=== PATIENT | male | born 1980 | race Caucasian/White ===

== ENCOUNTER → 2016-07-01 | Outpatient (CLI) | payer OTHER ==
--- NOTE | 2016-07-01 15:52 | MR ---
EXAMINATION TYPE: MR knee RT wo con DATE OF EXAM: 07/01/2016 3:29 PM COMPARISON: NONE HISTORY: Rt knee pain/lateral aspect since 06-12-16, injured while stepping off truck TECHNIQUE: Multiplanar, multisequence imaging of the right knee is performed without IV contrast. FINDINGS: MEDIAL MENISCUS: Intrasubstance signal posterior horn of the medial and lateral meniscus seen. Most t ypical of myxoid degeneration. No definite articular extension. LATERAL MENISCUS: Anterior and posterior horns are intact without tear. CRUCIATE LIGAMENTS: The anterior and posterior cruciate ligaments are intact and unremarkable. COLLATERAL LIGAMENTS: There is intrasubstance increased signal near the proximal portion of the later al collateral ligament MCL intact. EXTENSOR MECHANISM: Visualized quadriceps and patellar tendons are intact. EFFUSION: No significant suprapatellar joint effusion. POPLITEAL CYST: No popliteal/morrow cyst. TRICOMPARTMENT SPACES: There is grade IV chondromalacia involving the lateral patellar facet. Tiny am ount of fluid seen within the suprapatellar bursa and there is intermediate signal which may represen t small loose body. Marrow edema seen within the patella with no fracture line. Correlate for trauma and bone contusion. Patellar and quadriceps tendons intact. Retinaculum intact. Fibrillation is seen involving the articular medial and lateral femoral. BONE MARROW SIGNAL: Marrow signal alteration within the patella suggestive of contusion. OTHER: Superficial varicosities are noted. These are seen within the subcutaneous tissues.. IMPRESSION: 1. Grade 1 MCL strain 2. Grade IV chondromalacia lateral patellar facet with evidence of bone contusion involving the bishop la but no fracture. 3. Findings involving the posterior horn of the medial and lateral meniscus are suggestive of myxoid degeneration with no definite tear.
== END | disposition home or self-care (01) ==
LOC: RADMRIMAIN 14:39
PROVIDERS: ATTEND Orthopaedic Surgery
DX: S83.411A Sprain of medial collateral ligament of right knee, initial encounter (principal); M22.41 Chondromalacia patellae, right knee

== ENCOUNTER → 2018-03-20 | Outpatient (CLI) | payer OTHER ==
--- NOTE | 2018-03-22 03:50 | MR ---
EXAMINATION TYPE: MR hand RT wo con DATE OF EXAM: 03/20/2018 COMPARISON: HISTORY: Pain in 2nd and 3rd digit MCP Joint Standard multiplanar, multisequence MRI departmental protocol Multiplanar, multisequence images of the right hand were acquired. Diffusion weighted imaging was per formed. FINDINGS: The metacarpals appear intact. Phalanges appear intact. I see no focal bone destruction. Radha int spaces are fairly normal. There is no subluxation. The flexor and extensor tendons of the hand ap pear intact. MP joint spaces are fairly well-maintained. There is tiny amount of fluid at the second third fourth MP joints consistent with minimal synovitis. There is no evidence of a soft tissue mass. There is no extra-articular pathologic soft tissue fluid collection. IMPRESSION: No fracture. Minimal fluid at the second third fourth MP joints consistent with minimal nonspecific s ynovitis.
== END ==
LOC: RADMRIMAIN 15:09
PROVIDERS: ATTEND Orthopaedic Surgery Hand Surgery
DX: M79.641 Pain in right hand (principal)

== ENCOUNTER → 2019-02-08 | Outpatient (CLI) | payer OTHER ==
--- NOTE | 2019-02-10 04:29 | MR ---
EXAMINATION TYPE: MR wrist LT wo con DATE OF EXAM: 02/08/2019 COMPARISON: NONE HISTORY: 38-year-old male left wrist pain, sprain TECHNIQUE: Multiplanar, multisequence images of the left wrist were obtained without IV contrast. FINDINGS: There is mild globular intermediate signal with thickening of the dorsal scapholunate ligament. Intac t dorsal fibers are visualized. The lunotriquetral ligament is intact. Subchondral cystic changes noted within the volar aspect of the scaphoid and also volar aspect of the radial styloid process at the radiocarpal joint. This seems to be associated irregular cartilage los s in this region along the radial aspect of the joint, refer to coronal T2 FS image 15. Otherwise, overall cartilage is maintained without evidence for bony erosions. There is some fusiform thickening of the extensor carpi ulnaris with a small interstitial tear, surro unding heterogeneous thickening of its synovial sheath and anterior tendon subluxation. A third small tendon slip within the second dorsal extensor compartment likely anatomic variation. Otherwise, dorsal extensor and volar flexor tendons appear within normal limits. Thickening of the median nerve at the level of the distal carpal crease at 20 sq mm. The triangular fibrocartilage remains intact. There is some thickening and heterogeneous signal along the ulnar attachment of the dorsal radioulnar ligament, referred to the coronal T2 FS image 16. Smal l effusion within the distal radioulnar joint. The visualized musculature and osseous structures are otherwise within normal limits. IMPRESSION: 1. Focal osteoarthritic change along the radial volar aspect of the radioscaphoid joint with focal ir regular cartilage loss and subchondral cystic change. 2. ECU tendinosis, mild tenosynovitis, and small interstitial tear. There is also anterior tendon sub luxation suggesting ECU subsheath sprain. 3. Adjacent mild sprain involving the dorsal radioulnar ligament. 4. Low-grade versus chronic sprain of the dorsal scapholunate ligament. No molly tear. 5. Thickening of the median nerve at the carpal tunnel can be seen with median neuropathy. Query any symptoms of carpal tunnel syndrome.
== END | disposition home or self-care (01) ==
LOC: RADMRIMAIN 14:30
PROVIDERS: ATTEND Orthopaedic Surgery
DX: M19.032 Primary osteoarthritis, left wrist (principal); M65.88 Other synovitis and tenosynovitis, other site; M67.88 Other specified disorders of synovium and tendon, other site; S63.592A Other specified sprain of left wrist, initial encounter; G56.12 Other lesions of median nerve, left upper limb

== ENCOUNTER → 2019-03-19 | Outpatient (CLI) | payer OTHER ==
--- NOTE | 2019-04-19 16:56 | XR ---
EXAMINATION TYPE: XR lumbar spine 2 or 3V DATE OF EXAM: 03/19/2019 COMPARISON: NONE HISTORY: Back pain TECHNIQUE: 3 views FINDINGS: Vertebra have normal alignment. Posterior elements are intact. There is mild anterior spurr ing at L1-2 and L3-4. Sacroiliac joints are intact. IMPRESSION: Mild degenerative spurring. No fracture seen.
== END | disposition home or self-care (01) ==
LOC: RADXRMAIN 10:54
PROVIDERS: ATTEND Family Medicine
DX: M47.26 Other spondylosis with radiculopathy, lumbar region (principal)
CPT/HCPCS: 72100

== ENCOUNTER → 2020-07-25 | Outpatient (CLI) | payer OTHER ==
--- NOTE | 2020-07-25 15:42 | XR ---
EXAMINATION TYPE: XR Hip Complete LT DATE OF EXAM: 07/25/2020 CLINICAL HISTORY: pain TECHNIQUE: AP and frogleg views of the left hip are obtained. COMPARISON: None. FINDINGS: There is no acute fracture/dislocation evident. The joint space appears moderately narro wed.. The overlying soft tissue appears unremarkable. IMPRESSION: 1. There is no acute fracture or dislocation.ICD 10 NO FRACTURE, INITIAL EVALUATION
== END | disposition home or self-care (01) ==
LOC: RADXRMAIN 15:09
PROVIDERS: ATTEND Family Medicine
DX: M25.552 Pain in left hip (principal)
CPT/HCPCS: 73502

== ENCOUNTER → 2020-09-20 | Outpatient (CLI) | payer OTHER ==
--- NOTE | 2020-09-20 21:56 | CT ---
EXAMINATION TYPE: CT lumbar spine wo con DATE OF EXAM: 09/20/2020 COMPARISON: None HISTORY: DDD CT DLP: 3116.4 mGycm CONTRAST: None TECHNIQUE: CT of the lumbar spine is performed on a spiral scan at 3 mm thick sections. Reconstructed images are performed in the coronal and sagittal planes. FINDINGS: T12-L1: No focal disc herniation or significant disc bulge is evident. No spinal canal stenosis or neural foraminal stenosis is present. L1-L2: No focal disc herniation or significant disc bulge is evident. No spinal canal stenosis or n eural foraminal stenosis is present L2-L3: Mild disc bulge is present with anterior thecal sac flattening. No spinal canal stenosis or ne ural foraminal stenosis is present. L3-L4: Minimal disc bulge is present. Some posterior longitudinal ligament calcification is present. No spinal canal stenosis or neural foraminal stenosis is present L4-L5: Mild disc bulge is present with anterior thecal sac flattening. No spinal canal stenosis is pr esent. Some moderate left foraminal narrowing is present mild right foraminal narrowing is present L5-S1: Facet hypertrophy is present with posterior lateral thecal sac compression. Lateral recess hoad nosis is present. Severe bilateral foraminal stenosis is present. Spinal canal is patent. No signific ant disc bulge is evident. Endplate spurring from L5 is present Vertebral alignment appears normal. IMPRESSION: 1. Disc bulging L2-3 through L4-5 with mild anterior thecal sac flattening. 2. Facet hypertrophy contributing to severe foraminal stenosis at L5-S1. Correlate S1 radicular sympt oms.
== END | disposition home or self-care (01) ==
LOC: RADCTMAIN 07:39
PROVIDERS: ATTEND Family Medicine
DX: M48.07 Spinal stenosis, lumbosacral region (principal); M51.26 Other intervertebral disc displacement, lumbar region
CPT/HCPCS: 72131

== ENCOUNTER → 2021-07-12 | Outpatient (CLI) | payer OTHER ==
[2021-07-12 14:48] VITALS: BP 115/76; PULSE 90; RESP 18; TEMP 98
--- NOTE | 2021-07-12 14:54 | P.CON ---
Consult Note - . Consult date: 07/12/21 Assessment/Plan:: HISTORY OF PRESENT ILLNESS: 41 yr old male as a referral from Dr Glaser presents today with severe and chronic lumbar pain secondary to disc bulges, neuroforaminal stenoses and facet arthropathy for evaluation. Patient states he has been having lower back pain for the last 5 or 6 years. It is 4 out of 10 in intensity, dull, achy in the lower aspects of the lumbar spine without radiation of pain but occasionally escalates as high as 10 out of 10 in intensity with bending, lifting and standing. Pain is relieved with medications (Neurontin, ibuprofen from Dr. Glaser), topical medications that are [id number], physical therapy in October 2020, daily home stretching regimen and rest. PMH: HTN, PreDiabetic, OA PSH: LESI x 3 "years ago," L MCL Tear, L Wrist Tendinitis SH: No tobacco use, occasional ETOH use, no illicit drug use. Wheelchair dependent. FH: Non contributory All: NKDA Meds: See list REVIEW OF ORGAN SYSTEMS: CONSTITUTIONAL: No fevers or chills. No recent weight loss. HEENT: No visual acuity loss, eye pain, difficulties with hearing. No nosebleeds. No difficulty swallowing. RESPIRATORY: Denies any troubles with breathing or dyspnea on exertion. CARDIOVASCULAR: Denies any chest pain, palpitations, or recent heart attacks. GASTROINTESTINAL: Denies fatty food intolerance. Has change in bowel habits and gas bloat. GENITOURINARY: Denies any blood in urine. Has increased urinary frequency. NEUROLOGICAL: + numbness and tingling along the distal extremities. No seizure disorders or headaches. MUSCULOSKELETAL: + back pain SKIN: No skin cancer. No rash. PSYCHIATRIC: Denies current depression or suicidal thoughts. ENDOCRINE: Denies current thyroid disorders. Denies any blood sugar glucose intolerance. HEME/LYMPHATIC: Denies any lumps and bumps around the neck. History of deep venous thrombosis. ALLERGY/IMMUNOLOGY: No immunoglobulin therapy. No immune deficiencies. BREAST: Denies current breast lumps, pain or nipple discharge. Physical Examinations : Constitutional : Cooperative , not in acute distress . HEENT: Neck supple. No Lymphadenopathy. Normal thyroid size . Eyes no ptosis , no icterus, no photophobia . Hearing intact. Normal oropharynx. No Thrush. Respiratory : Chest clear to auscultations bilaterally. No wheezing. No rhonchi. Cardiovascular : Regular rate and rhythm , S1 / S2. No S3 . No S4. Gastrointestinal : Abdomen soft. No tenderness. Bowel sounds x 4. No organomegaly . Genitourinary : Deferred. Neurologic : Cranial nerve II to XII intact. No focal neurological deficits. Psychiatric : alert & oriented x 3. Matching mood & appropriate affect. Judgment & insight intact. Lymphatic No Lymphadenopathy. Musculoskeletal : Cervical Spine Motor strength in the deltoid and biceps: Normal right side. Normal Left side Motor strength biceps and the wrist extensors: Normal right side . Normal left side Motor strength in the triceps muscle: Normal right side. Normal left side Deep tendon reflexes: Normal at the biceps. Normal at Brachioradialis. Normal at triceps Cervical facet loading test: positive bilaterally Spurling test: positive bilaterally Neck distraction test: positive bilaterally Hoda sign: positive bilaterally Lumbar spine Motor strength lower extremities ,thigh and legs 5/5 Right side , 5/5 Left side Deep tendon reflexes : Normal Knee Jerk. Normal Ankle Jerk Vertebral body tenderness over L4, L5 Lumbar facet Loading Test: positive Right / positive Left Range of motion of the lumbar spine Flexion 30 degrees, extension 10 degrees Straight Leg Raise test: Left/ Right positive at <45 degree Rick test: positive right / positive left. Severe tenderness over the Sacroiliac joint on the Right / Left sides Gaenslen test: positive bilaterally Seated flexion test: positive bilaterally. Imaging: CT Scan Lumbar spine without contrast from 09/20/20 reviewed. Assessment/ Plan : Recommendation of LESI L4-L5. A need a series of injections, up to 3 within a six-month period, to obtain optimal pain relief. Risks, benefits of procedure discussed and patient verbalized understanding. Denies aspirin or anti- coagulant use. Admits to medical history of prediabetes. Protocol for disconti nuation/continuation of medications matteo procedure discussed. All questions answered. I have spent greater than 50 minutes on patient care today. Dr Serrano was available by phone for the evaluation of this patient. The time was used to review the medical records including relevant urine studies and Prescription history (MAPs), review of the available imaging, evaluation and examination of the patient, coordination of care with the medical staff and if applicable referring physicians, as well as creation of the medical record PQRS Measure Charge Sheet Mode of Arrival: Ambulatory, Walker - Pain Location Lower Back Non-Pharmacological Interventions: Heat, Home Exercise, Ice, Inactivity, Physical Therapy, Stretching Pharmacological Interventions: PRN Medication PQRS Narrative: Smoking Status Never smoker Blood Pressure 115/76 Pain Intensity [Lower Back] 4 Scale Used Numeric (1 - 10) Hx Alcohol Use (MH) No Home Medications: Ambulatory Orders Hydrocodone/Acetaminophen [[place] 5-325] 1 tab PO Q6HR PRN #20 tab 01/19/17 Dulaglutide [Trulicity] 1 injection IM WEEKLY 07/12/21 Gabapentin PO TID 07/12/21 Ibuprofen [Motrin] 1 tab PO BID 07/12/21 Meloxicam 1 tab PO DAILY 07/12/21 Potassium Chloride ER [K-Dur 10] 1 tab PO DAILY 07/12/21 hydroCHLOROthiazide 1 tab PO DAILY 07/12/21
== END | disposition home or self-care (01) ==
LOC: PNWHC3 13:49
PROVIDERS: ATTEND Specialist
DX: M46.96 Unspecified inflammatory spondylopathy, lumbar region (principal); M48.061 Spinal stenosis, lumbar region without neurogenic claudication
CPT/HCPCS: G0463 ×2; 99202; 99211

== ENCOUNTER 2021-08-14 12:41 | Day surgery (SDC) | payer OTHER ==
[2021-08-13 12:34] VITALS: BMI 56.1
[~2021-08-14 12:41] MED LIST: LACTATED RINGERS 1,000 ML IV SCH
[2021-08-14 13:38] VITALS: TEMP 98.1
[2021-08-14] MEDS ORDERED: ROPIVACAINE 5MG/ML 20ML VIAL ONE (14:08)
[2021-08-14] MEDS ORDERED: TRIAMCINOLONE ACETONIDE 40 MG/ML 1 ML VIAL ONE (14:08)
[2021-08-14] MEDS ORDERED: IOPAMIDOL M200 10 ML VIAL ONE (14:13)
--- NOTE | 2021-08-14 14:27 | P.PCN ---
Date of Procedure: 08/14/21 Surgeon: Jazmin Villalba Pathology: none sent Condition: stable Disposition: PACU Description of Procedure: 1-Lumbar radiculopathy 2- Lumber Degenerative Disc Diseases. POSTOPERATIVE DIAGNOSIS: 1-Lumbar radiculopathy. 2-Lumbar Degenerative Disc Diseases PROCEDURE 1. Lumbar epidural steroid injection under fluoroscopic guidance at the L4-5 level in the right paramedian approach 2. Lumbar epidurogram. ANESTHESIA: Local with 1% lidocaine; and IV moderate conscious sedation with Versed and fentanyl EBL: Minimal PROCEDURE INDICATION: The patient with low back pain and radiculitis symptoms unresponsive to conservative treatment. Fluoroscopy was used to optimize visualization of the needle placement and to maximize safety. PROCEDURE DESCRIPTION / TECHNIQUE: The patient was seen and identified in the preoperative area. Risks, benefits, complications including but not limited to infections ,bleeding ,allergic reaction to the medications ,nerve damage and not complete pain relief , and alternatives were discussed with the patient. The patient agreed to proceed with the procedure and signed the consent. IV was started, and vital signs were stable. Patient was taken to the OR and time out was completed. The patient was placed in the prone position on procedure table and a pillow was placed under the abdomen to reduce lumbar lordosis. The lumbosacral area was prepped and draped in the usual sterile fashion with ChloraPrep.Patient was closely monitored during the procedure. Conscious sedation was used during the procedure to decrease patients anxiety. Vital signs were monitered during the entire procedure. Using anterior-posterior fluoroscopy, the L4-5 interlaminar space was identified and the skin over this site was marked and then infiltrated with 1% lidocaine subcutaneously. Subsequently, a 18-gauge 6 inch Tuohy epidural needle was inserted and advanced toward the epidural space using the Loss of resistance to air technique and guided by AP and lateral fluoroscopy. The correct needle position in the epidural space was verified with the injection of 1 mL of the water soluble contrast dye Omnipaque 180 contrast and observing an excellent epidurogram with the epidural spread of the dye, after negative aspiration for blood and CSF and in the absence of paresthesias. The epidural space was found at about 12 cm from skin. Again after negative aspiration, a 8 ml mixture containing 40 mg of Kenalog and 5 ml of preservative free Normal Saline, and 2 ml of preservative free ropivacaine 0.5% solution was injected and a washout of epidurogram was seen. Needle was withdrawn intact, skin was cleansed, and bandages were applied. patient tolerated procedure well and was transferred to PACU in stable condition.A copy of the needle placement picture was saved to the fluoroscopy machine. COMPLICATIONS: None
[2021-08-14 14:37] VITALS: BP 114/76; PULSE 76; RESP 18
--- NOTE | 2021-08-14 15:47 | FL ---
EXAMINATION TYPE: FL guided pain mgmt statistic DATE OF EXAM: 08/14/2021 HISTORY: Fluoroscopy time 8 seconds of fluoroscopy provided. IMPRESSION: 1. Fluoroscopy time.
== END 2021-08-14 14:45 | disposition home or self-care (01) ==
LOC: ORPAIN 12:41
PROVIDERS: ATTEND Anesthesiology
DX: M51.16 Intervertebral disc disorders with radiculopathy, lumbar region (principal); I10 Essential (primary) hypertension; R73.03 Prediabetes; E66.01 Morbid (severe) obesity due to excess calories; Z68.43 Body mass index [BMI] 50.0-59.9, adult
CPT/HCPCS: 62323; J3301; Q9966; J2795

== ENCOUNTER 2021-09-27 12:31 | Day surgery (SDC) | payer OTHER ==
[2021-09-25 16:04] VITALS: BMI 56.1
[~2021-09-27 12:31] MED LIST changes: +LIDOCAINE 1% (10MG/ML) FOR IV START INTRADERMA PRN
[2021-09-27 13:16] VITALS: TEMP 98.6
[2021-09-27] MEDS ORDERED: methylPREDNISolone ACETATE 80 MG/ML 1 ML VIAL ONE (13:37)
[2021-09-27] MEDS ORDERED: IOPAMIDOL M200 10 ML VIAL ONE (13:37)
--- NOTE | 2021-09-27 13:47 | P.PCN ---
Date of Procedure: 09/27/21 Procedure(s) Performed: PREOPERATIVE DIAGNOSIS: 1- Lumbar Degenerative Disc Diseases 2-Lumbar radiculopathy POSTOPERATIVE DIAGNOSIS: Same as preop diagnosis. PROCEDURE 1. Lumbar epidural steroid injection under fluoroscopic guidance at the L4-5 level. (Fluoroscopy imaging was available in radiology department) 2. Lumbar epidurogram. ANESTHESIA: Local with 1% lidocaine 3 ml only EBL: Minimal PROCEDURE INDICATION: The patient with low back pain and radiculitis symptoms unresponsive to conservative treatment. Fluoroscopy was used to optimize visualization of the needle placement and to maximize safety. PROCEDURE DESCRIPTION / TECHNIQUE: The patient was seen and identified in the preoperative area. Risks, benefits, complications including but not limited to infections ,bleeding ,allergic reaction to the medications ,nerve damage and not complete pain releife , and alternatives were discussed with the patient. The patient agreed to proceed with the procedure and signed the consent. IV was started, and vital signs were stable. Patient was taken to the OR and time out was completed. The patient was placed in the prone position on procedure table and a pillow was placed under the abdomen to reduce lumbar lordosis. The lumbosacral area was prepped and draped in the usual sterile fashion.ere closely monitored during the procedure. Vital signs was monitered during the entire procedure. Using anterior-posterior fluoroscopy, the L4-5 interlaminar space was identified and the skin over this site was marked and then infiltrated with 1% lidocaine subcutaneously. Subsequently, a 20-gauge Tuohy (6 inches long ) epidural needle was inserted and advanced toward the epidural space using the ``Loss of resistance technique and guided by AP and lateral fluoroscopy. The correct needle position in the epidural space was verified with the injection of 2 mL of the water soluble contrast dye Isovue 200 contrast and observing an excellent epidurogram with the epidural spread of the dye, after negative aspiration for blood and CSF and in the absence of paresthesias. Again after negative aspiration, a 6 ml mixture containing 80 mg of Depo-medrol , and 2 ml of preservative free Normal Saline, and 2 ml of preservative free lidocaine 1% solution was injected and a washout of epidurogram was seen. Needle was withdrawn intact, skin was cleansed, and bandages were applied. COMPLICATIONS: None DISPOSITION / PLANS: The patient was placed in a supine position and transferred to the recovery area in a stable condition for observation. There was no evidence of lower extremity motor or sensory deficit after the procedure. Patient was discharged from the recovery room after meeting discharge criteria. Home discharge instructions were given to the patient by the staff. The patient was reexamined prior to discharge. The patient will schedule a follow up in the clinic in 2-4 weeks.
[2021-09-27 13:55] VITALS: RESP 16
--- NOTE | 2021-09-27 13:58 | FL ---
EXAMINATION TYPE: FL guided pain mgmt statistic DATE OF EXAM: 09/27/2021 HISTORY: Fluoroscopy time 3 seconds of fluoroscopy provided. IMPRESSION: 1. Fluoroscopy time.
[2021-09-27 14:09] VITALS: BP 145/77; PULSE 85
== END 2021-09-27 14:09 | disposition home or self-care (01) ==
LOC: ORPAIN 12:31
PROVIDERS: ATTEND Specialist
DX: M51.16 Intervertebral disc disorders with radiculopathy, lumbar region (principal)
CPT/HCPCS: 62323; J1040; Q9966

== ENCOUNTER → 2021-10-25 | Outpatient (CLI) | payer OTHER ==
--- NOTE | 2021-10-25 14:30 | P.PAINPG ---
PQRS Measure Charge Sheet Comment: A 41 yr old male with a history of severe and chronic low back pain secondary to lumbar degenerative disc diseases and lumbar spondylosis with facet arthropathy presents today for evaluation s/p LESI L4-L5 . Pt states he experienced 30% pain relief x 2 weeks s/p procedure. Pain level is currently at 3/10 in intensity, constant, localized in the lower back, L & R of midline, sharp for several years. Pain is provoked by lifting/ bending for periods of 30 min or more. Pain is alleviated with PT 1 yr ago, home exercise regimen, ice, medications (Neurontin, Ibuprofen, Aleve OTC), topical, laying supine, sitting and rest. Interventional pain procedures completed include LESI L4-L5 x2 Patient is currently on Ibuprofen, Neurontin, Aleve OTC Patient denies any side effects of the medication(s), denies excessive drowsiness or sleepiness, denies suicidal ideation and reports that the current pain medication is helping to control the pain and improve activities of daily living. Patient denies any motor or sensory deficits. Patient denies any fever or night sweats, denies any change in the bowel movements or urination. Physical Examination: -Constitutional: Cooperative. Not in acute distress . - Neurologic: Cranial nerve II to XII intact. No focal neurological deficits. - Psychatric: Alert & oriented x 3. Matching mood & appropriate affect. Judgment and insight intact. - Musculoskeletal: Cervical spine: Muscle bulk/ tone/ strength in the bilateral upper extremities normal Vertebral body tenderness to palpation over Spurling test positive Distraction test positive Facet loading test positive Thoracic spine Muscle bulk / tone/ strength in the bilateral paraspinal muscles normal Vertebral body tender to palpation over Facet loading test positive Lumbar spine: Motor bulk/ tone/ strength lower extremities , thigh and legs : 5/5 Deep tendon reflexes : Normal Knee Jerk. Normal Ankle Jerk . Vertebral body tenderness to palpation over Lumbar Facet Loading Test positive over BL L4-L5 and L5-S1 w jump reflex Straight Leg Raise: positive at 30 degrees right side/ left side Gaenslen's Test positive Sacral spine : Severe tenderness over the Sacroiliac joint: right side / left side Range of motion: Flexion of the lumbar spine <60 degrees Range of motion: Extension of the lumbar spine <20 degrees Gaenslen's Test positive Aydin's Test positive Rick test: positive right side / left side Thigh Thrust Test Sacral Thrust Test Assessment and plan: Chronic low back pain secondary to lumbar degenerative disc disease , lumbar spondylosis with facet arthropathy without myelopathy Recommendation of BL L4-L5, L5-S1 medial branch blocks. May need a series of injections, up until RFA, for optimal pain relief. Risks, benefits of procedure discussed and pt verbalized understanding. Denies anticoagulant use and admits to a medical history of diabetes. Protocol for discontinuation/ continuation of medications matteo procedure discussed. All patient questions answered MAPS reviewed and it was appropriate. I have spent less than 30 minutes on patient care today. Dr Serrano was available by phone for the evaluation of this patient. The time was used to review the medical records including relevant urine studies and Prescription history (MAPs), review of the available imaging, evaluation and examination of the patient, coordination of care with the medical staff and if applicable referring physicians, as well as creation of the medical record PQRS Narrative: Smoking Status Never smoker Hx Alcohol Use (MH) No Home Medications: Ambulatory Orders Gabapentin 600 mg PO BID-W/MEALS 07/12/21 Ibuprofen [Motrin] 600 mg PO BID 07/12/21 Meloxicam 15 mg PO DAILY 07/12/21 Potassium Chloride ER [K-Dur 10] 10 meq PO DAILY 07/12/21 Furosemide [Lasix] 20 mg PO DAILY 08/13/21 Gabapentin 1,200 mg PO HS 08/13/21 Multivitamin With Christian 3 1 dose PO DAILY 08/13/21 Dulaglutide [Trulicity] 1.5 mg SQ MO 09/25/21 Controlled Substance Measures - Controlled Substance Measures Is patient prescribed a controlled substance at discharge?: No
[2021-10-25 14:43] VITALS: BP 130/93; PULSE 72; RESP 19; TEMP 98.1
== END | disposition home or self-care (01) ==
LOC: PNWHC3 13:41
PROVIDERS: ATTEND Specialist
DX: M47.896 Other spondylosis, lumbar region (principal); M51.36 Other intervertebral disc degeneration, lumbar region
CPT/HCPCS: 99211

== ENCOUNTER 2021-12-07 11:13 | Day surgery (SDC) | payer OTHER ==
[2021-12-06 09:27] VITALS: BMI 56.1
[2021-12-07 11:35] VITALS: RESP 16; TEMP 98.2
[2021-12-07] MEDS ORDERED: ROPIVACAINE 5MG/ML 20ML VIAL ONE (11:58)
[2021-12-07] MEDS ORDERED: methylPREDNISolone ACETATE 40 MG/ML 1 ML VIAL ONE (11:58)
--- NOTE | 2021-12-07 12:22 | P.PCN ---
Date of Procedure: 12/07/21 Procedure(s) Performed: PREOPERATIVE DIAGNOSIS : 1- Lumbar spondylosis with Facet Arthropathy without myelopathy . 2- Lumber degenerative disc disease POSTOPERATIVE DIAGNOSIS: 1- Lumbar spondylosis with Facet Arthropathy without myelopathy . 2- Lumber degenerative disc disease PROCEDURE: Diagnostic bilateral L3 , L4 , and L5 medial branch block under fluoroscopy guidance(fluoroscopy images available in the radiology Department ) ( To target the facet joint between bilateral L4-5 , and L5-S1 ) ANESTHESIA: none EBL: Minimal COMPLICATION: None PROCEDURE INDICATION: Chronic low back pain secondary to Facet arthropathy unresponsive to conservative treatment. PROCEDURE DESCRIPTION: the patient was seen and identified in the preop holding area , risks and benefits and possible complications of the procedure and alternative were discussed with the patient, and the patient agreed to proceed with the procedure and signed the consent and vital signs monitored during the procedure and fluoroscopy was used to maximize the benefit and accuracy of the needle placement,, patient was taken to the procedure room and placed in prone position vital signs monitored in the back prepped with chlorhexidine X3 then under strict sterile technique using a right oblique fluoroscopy ,the junction of the transverse process and the superior articulating process of the right L3 , L4 , and L5 vertebra which corresponding to the fluoroscopy image of the eye of the Carlos dog on the block side for the medial branches and subsequently , after local infiltration of skin and subcu tissuies with Ropivacaine 0.5 % , one mL at each level ,then 22-gauge 5 inches long Quincke-type needles , 3 needle was used , each one of them placed at the junction of the base of the transverse process and the superior articular process at the appropriate level, and the needle was advanced until the periosteum contacted, needle placement confirmed with AP oblique and lateral view and after appropriate needle placement confirmed, and after negative aspiration for heme and CSF and there was no paresthesia 1-1/2 mL of Ropivacaine 0.5% mixed with 20 mg Depo-Medrol , then half mL injected at each level after negative aspiration the needle subsequently removed and the same procedure repeated for the left side at left side at L3 , L4 and L5 levels. At the end of the procedure and the needles removed and a bandage applied after the skin was cleaned the cleaning solution patient taken to recovery room in stable condition and monitors in the recovery room for 20-30 minutes and discharged home in stable condition after discharge criteria met and patient will follow up with the pain clinic in 2-4 weeks
--- NOTE | 2021-12-07 12:30 | FL ---
EXAMINATION TYPE: FL guided pain mgmt statistic DATE OF EXAM: 12/07/2021 HISTORY: Fluoroscopy time 32 seconds of fluoroscopy provided. IMPRESSION: 1. Fluoroscopy time.
[2021-12-07 12:32] VITALS: BP 123/70; PULSE 72
== END 2021-12-07 12:44 | disposition home or self-care (01) ==
LOC: ORPAIN 11:13
PROVIDERS: ATTEND Specialist
DX: M47.816 Spondylosis without myelopathy or radiculopathy, lumbar region (principal); M51.36 Other intervertebral disc degeneration, lumbar region; G89.29 Other chronic pain; Z79.84 Long term (current) use of oral hypoglycemic drugs; Z79.899 Other long term (current) drug therapy; Z79.1 Long term (current) use of non-steroidal anti-inflammatories (NSAID); F17.220 Nicotine dependence, chewing tobacco, uncomplicated
CPT/HCPCS: 64493; 64494; J1030; J2795

== ENCOUNTER 2022-01-04 11:30 | Day surgery (SDC) | payer OTHER ==
[2022-01-03 09:27] VITALS: BMI 56.1
[2022-01-04 12:33] VITALS: RESP 20; TEMP 97.4
[2022-01-04 12:40] LABS: Glucose,Whole Blood 83 mg/dL (70-110)
[2022-01-04] MEDS ORDERED: TRIAMCINOLONE ACETONIDE 40 MG/ML 1 ML VIAL ONE (12:57)
[2022-01-04] MEDS ORDERED: ROPIVACAINE 5 MG/ML 20 ML AMPULE ONE (12:57)
--- NOTE | 2022-01-04 13:17 | P.PCN ---
Date of Procedure: 01/04/22 Description of Procedure: Pre- and Post-operative Diagnosis: Lumbar facet arthropathy, and lumbar spon dylosis without myelopathy. Procedure: #2 Diagnostic Medial Branch Block at bilateral Lumbar 4/5 and #2 diagnostic dorsal ramus block at Lumbar 5/ sacral ala levels (total 4 levels) Surgeon: Jennifer Varghese Anesthesia: Local: 1% Lidocaine, IV sedation : None Complications: None EBL: None Specimen removed: None Fluoroscopic image: Saved to patient electronic medical records. Indications for Procedure: The patient is well known to pain clinic for his chronic low back pain management. The lumbar facet loading test was positive with a clinical diagnosis of lumbar facet arthropathy. Failed with conservative therapy. Patient had a great pain relief with the previous lumbar medial branch block. Came here for interventional help for better pain relief. Procedure and Findings: The patient was seen and examined. The written informed consent was obtained after explaining the risks, benefits and alternatives of the procedure to the patient. The patient was brought to the procedure room and was placed in the prone position on the operating table table. A pillow was placed under the abdomen to reduce lumbar lordosis. Standard anesthesia monitoring was done through out the procedure. The skin preparation was done with ChloraPrep X1, and draping was done in usual sterile fashion. Sterile technique was observed throughout the procedure. Under fluoroscopic guidance, right-sided the Lumbar 4, 5 and Sacral ala levels were identified in the AP view. For lumbar L4, and L5 levels the targeting area of superior articular process, and close to the most medial and superior aspect of transverse process identified, marked. 1ml of 1% Lidocaine was used with a 25 gauge needle to achieve adequate local anesthesia of the skin and subcutaneous tissue at each level. A 22 gauge 5 inch spinal needle was placed and advanced targeting area which was close to the most medial and superior aspect of the transverse process. For Lumbar 5/ sacral ala level, fluoroscope was used in the anteroposterior view, and the needle tip was placed at the superior and most medial part of sacral ala close to the superior articular process. A bony contact was obtained and needle tip position was confirmed at anteroposterior view. No paresthesia was noted. A negative aspiration was confirmed. 0.5 ml solution per level was injected, the block solution containing 3 ml of 0.5% ropivacaine preservative-free solution mixed with 40 MG of Kenalog. The needles were removed intact. Entire procedure repeated on the left side. Lumbar area was cleaned and bandages were applied. Disposition : The patient tolerated the procedure very well. The patient was transferred to the recovery room and remained stable until discharged home. The patient was given detailed discharge instructions for infecti a on, bleeding, and increased pain at the injection site, and was advised to seek immediate medical attention should significant side effects develop. The patient will be scheduled with Pain Clinic within 4 weeks for lumbar radiofrequency ablation if it's helpfu
--- NOTE | 2022-01-04 13:27 | FL ---
Intraoperative/procedural fluoroscopic services were provided for bilateral lumbar facet block. Total fluoroscopy time is 14 seconds with a total of 5 submitted images to PACS. Please see the operative note for further details.
[2022-01-04 14:05] VITALS: BP 145/86; PULSE 83
== END 2022-01-04 14:00 | disposition home or self-care (01) ==
LOC: ORPAIN 11:30
DX: M47.816 Spondylosis without myelopathy or radiculopathy, lumbar region (principal); M79.2 Neuralgia and neuritis, unspecified; G89.29 Other chronic pain; E11.9 Type 2 diabetes mellitus without complications; G47.33 Obstructive sleep apnea (adult) (pediatric)
CPT/HCPCS: 64493; 64494 ×2; J3301; J2795

== ENCOUNTER → 2022-02-06 | Outpatient (CLI) | payer OTHER ==
[2022-02-06 13:04] VITALS: BP 140/79; PULSE 92; RESP 18; TEMP 98.4
--- NOTE | 2022-02-06 14:45 | P.PAINPG ---
PQRS Measure Charge Sheet Comment: A 41 yr old male with a history of severe and chronic low back pain secondary to lumbar degenerative disc diseases and lumbar spondylosis with facet arthropathy without myelopathy presents today for evaluation s/p BL MBB L3-L5 #2. Pt states he experienced 50% pain relief x 1 day s/p procedures. Pain level is currently at 3 /10 in intensity, constant, localized in lower lumbar spine, achy in character w shooting towards alternating LEs. Pain is provoked by walking/standing for periods of 30 min or more, or lifting. Pain is alleviated with PT x 4 wks in May 2021, medications, topicals, sitting, repositioning and rest. States he manages his stiffness w sedentary lifestyle. If he tries to bend or lift "too much," he is "laying in bed for days." Interventional pain procedures completed include BL MBB L3-L5 x1, LESIs x2 Patient is currently on Neurontin, Ibuprofen Patient denies any side effects of the medication(s), denies excessive drowsiness or sleepiness, denies suicidal ideation and reports that the current pain medication is helping to control the pain and improve activities of daily living. Patient denies any motor or sensory deficits. Patient denies any fever or night sweats, denies any change in the bowel movements or urination. Physical Examination: -Constitutional: Cooperative. Not in acute distress . - Neurologic: Cranial nerve II to XII intact. No focal neurological deficits. - Psychatric: Alert & oriented x 3. Matching mood & appropriate affect. Judgment and insight intact. - Musculoskeletal: Cervical spine: Muscle bulk/ tone/ strength in the bilateral upper extremities normal Vertebral body tenderness to palpation over Spurling test positive Distraction test positive Facet loading test positive Thoracic spine Muscle bulk / tone/ strength in the bilateral paraspinal muscles normal Vertebral body tender to palpation over Facet loading test positive Lumbar spine: Motor bulk/ tone/ strength lower extremities , thigh and legs : 5/5 Deep tendon reflexes : Normal Knee Jerk. Normal Ankle Jerk . Vertebral body tenderness to palpation over L5 Lumbar Facet Loading Test positive Straight Leg Raise: positive at 30 degrees right side/ left side Gaenslen's Test positive Sacral spine : Severe tenderness over the Sacroiliac joint: right side / left side Range of motion: Flexion of the lumbar spine <60 degrees Range of motion: Extension of the lumbar spine <20 degrees Gaenslen's Test positive Aydin's Test positive Rick test: positive right side / left side Thigh Thrust Test Sacral Thrust Test Assessment and plan: Chronic low back pain secondary to lumbar degenerative disc disease , lumbar spondylosis with facet arthropathy without myelopathy Recommendation of BL TFESI L5-S1. May need a series , up to 4 within a 12 mo period, for optimal pain relief. Risks, benefits of procedure discussed and pt verbalized understanding. Denies anticoagulant use or medical history of diabetes. Information on IPG provided. Pt states he manages his pain w medications and a sedentary lifestyle. May return to this clinic on an as needed basis. All patient questions answered I have spent less than 30 minutes on patient care today. Dr Serrano was available by phone for the evaluation of this patient. The time was used to review the medical records including relevant urine studies and Prescription history (MAPs), review of the available imaging, evaluation and examination of the patient, coordination of care with the medical staff and if applicable refe rring physicians, as well as creation of the medical record - Pain Location Bilateral Lower Back Non-Pharmacological Interventions: Inactivity, Physical Therapy, Sitting Pharmacological Interventions: Block, Epidural, PRN Medication, Scheduled Medication, Topical Medication PQRS Narrative: Smoking Status Never smoker Hx Alcohol Use (MH) No Home Medications: Ambulatory Orders Gabapentin 600 mg PO BID-W/MEALS 07/12/21 Ibuprofen [Motrin] 600 mg PO BID 07/12/21 Meloxicam 15 mg PO DAILY 07/12/21 Potassium Chloride ER [K-Dur 10] 10 meq PO DAILY 07/12/21 Furosemide [Lasix] 20 mg PO DAILY 08/13/21 Gabapentin 1,200 mg PO HS 08/13/21 Multivitamin With Christian 3 1 dose PO DAILY 08/13/21 Dulaglutide [Trulicity] 1.5 mg SQ MO 09/25/21 Controlled Substance Measures - Controlled Substance Measures Is patient prescribed a controlled substance at discharge?: No
== END ==
LOC: PNWHC3 12:40
PROVIDERS: ATTEND Specialist
DX: M47.816 Spondylosis without myelopathy or radiculopathy, lumbar region (principal); M51.36 Other intervertebral disc degeneration, lumbar region; G89.29 Other chronic pain
CPT/HCPCS: 99211